=== PATIENT | male | born 1950 | race Caucasian/White ===

== ENCOUNTER → 2017-09-15 | Outpatient (CLI) | payer OTHER ==
[~2017-09-15] MED LIST: IMD/2 PO; LISI-725 PO; NAPR-1169 PO
[2017-09-15 14:10] LABS: BLOOD UREA NITROGEN 16 mg/dl (7-18); CARBON DIOXIDE 25 mmol/L (21-32); CREATININE 1.32 mg/dl (0.60-1.40); GLUCOSE 114 mg/dl (70-99); SODIUM 137 mmol/L (136-145)
== END | disposition home or self-care (01) ==
LOC: C.LABPBG 10:24
PROVIDERS: ATTEND Family Medicine
DX: I10 Essential (primary) hypertension (principal); T14.90XA Injury, unspecified, initial encounter; W57.XXXA Bitten or stung by nonvenomous insect and other nonvenomous arthropods, initial encounter